=== PATIENT | male | born 2000 | race Caucasian/White ===

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

== ENCOUNTER 2023-03-31 22:34 | Emergency (ER) | payer OTHER ==
[2023-03-31 22:46] VITALS: BP 120/72; PULSE 59; RESP 16; TEMP 98.7
[2023-04-01] MEDS ORDERED: FLUORESCEIN STRIPS 1 MG STRIP RIGHT EYE ONE (00:21)
[2023-04-01] MEDS ORDERED: PROPARACAINE 0.5% OPHTH DROPS 15 ML BTL LEFT EYE STA (00:25)
[2023-04-01] MEDS ORDERED: TOBRAMYCIN 0.3% OPHTH DROPS 5 ML BTL LEFT EYE STA (00:47)
[2023-04-01] MEDS ORDERED: DIPH,PERTUS(ACELL)TETVAC-LF 0.5 ML VIAL IM ONE (00:48)
--- NOTE | 2023-04-01 00:55 | ED ---
Eye Problem HPI - General Chief complaint: Eye Problems Stated complaint: Object in left eye Time Seen by Provider: 04/01/23 00:11 Source: patient Mode of arrival: ambulatory Limitations: no limitations - History of Present Illness Initial comments: 22-year-old male presenting to the ED with a chief complaint of foreign body in left eye. She states he was cutting an exhaust earlier and got a foreign object in his left eye. Now notes pain of the left eye. Denies any changes in vision. Tetanus not up-to-date. No other complaints. - Related Data Home Medications Medication Instructions Recorded Confirmed No Known Home Medications 12/05/18 12/05/18 Allergies Allergy/AdvReac Type Severity Reaction Status Date / Time No Known Allergies Allergy Verified 03/31/23 22:41 Review of Systems ROS Statement: Those systems with pertinent positive or pertinent negative responses have been documented in the HPI. ROS Other: All systems not noted in ROS Statement are negative. Past Medical History Past Medical History: No Reported History History of Any Multi-Drug Resistant Organisms: None Reported Past Surgical History: No Surgical Hx Reported Past Psychological History: No Psychological Hx Reported Smoking Status: Vaper Past Alcohol Use History: None Reported Past Drug Use History: None Reported General Exam Limitations: no limitations General appearance: alert, in no apparent distress Head exam: Present: atraumatic Eye exam: Present: PERRL, EOMI, other (White/yellow foreign object in left eye. Moves easily. Displaced with proparacaine eyedrops.) Respiratory exam: Present: normal lung sounds bilaterally Cardiovascular Exam: Present: regular rate, normal rhythm Neurological exam: Present: alert, oriented X3 Psychiatric exam: Present: normal affect, normal mood Skin exam: Present: warm, dry Course Vital Signs 03/31/23 22:41 Temperature 98.7 F Pulse Rate 59 L Respiratory 16 Rate Blood Pressure 120/72 O2 Sat by Pulse 99 Oximetry Procedures - Forgein Body Removal Eye Site: Left Anesthetic Used: Proparacaine Eye Exam Technique: Fluorescein Foreign Body Suspected: Other Forgein Body Removal Technique: Cotton Swab Remaining Debris: No (No rust ring. Fluorescein exam unremarkable. ) Patient Tolerated: other (Intraocular pressures good bilaterally. Visual acuity 20/20 kenna) Medical Decision Making - Medical Decision Making Was pt. sent in by a medical professional or institution (, PA, CASTING AND LOCKER ROOM SERVICER, urgent care, hospital, or halfway...) When possible be specific @ -No Did you speak to anyone other than the patient for history (EMS, parent, family, police, friend...)? What history was obtained from this source @ -No Did you review nursing and triage notes (agree or disagree)? Why? @ -I reviewed and agree with nursing and triage notes Were old charts reviewed (outside hosp., previous admission, EMS record, old EKG, old radiological studies, urgent care reports/EKG's, halfway records)? Report findings @ -No old charts were reviewed Differential Diagnosis (chest pain, altered mental status, abdominal pain women, abdominal pain men, vaginal bleeding, weakness, fever, dyspnea, syncope, headache, dizziness, GI bleed, back pain, seizure, CVA, palpatations, mental health, musculoskeletal)? @ -Tetanus, acute vision loss. This is not meant to be an all-inclusive list. EKG interpreted by me (3pts min.). @ -None X-rays interpreted by me (1pt min.). @ -None done CT interpreted by me (1pt min.). @ -None done U/S interpreted by me (1pt. min.). @ -None done What testing was considered but not performed or refused? (CT, X-rays, U/S, labs)? Why? @ -None What meds were considered but not given or refused? Why? @ -None Did you discuss the management of the patient with other professionals (professionals i.e. , PA, CASTING AND LOCKER ROOM SERVICER, lab, RT, psych nurse, director social service, university relations recruiter, teacher, neighborhood conservation officer, case reviewer)? Give summary @ -No Was smoking cessation discussed for >3mins.? @ -No Was critical care preformed (if so, how long)? @ -No Were there social determinants of health that impacted care today? How? (Homelessness, low income, unemployed, alcoholism, drug addiction, tra nsportation, low edu. Level, literacy, decrease access to med. care, intermediate, rehab)? @ -No Was there de-escalation of care discussed even if they declined (Discuss DNR or withdrawal of care, Hospice)? DNR status @ -No What co-morbidities impacted this encounter? (DM, HTN, Smoking, COPD, CAD, Cancer, CVA, ARF, Chemo, Hep., AIDS, mental health diagnosis, sleep apnea, morbid obesity)? @ -None Was patient admitted / discharged? Hospital course, mention meds given and route, prescriptions, significant lab abnormalities, going to OR and other pertinent info. @ -Discharge. Foreign body removed without complications. Please see procedure note for further details. Tetanus updated Provided tobramycin eyedrops here. Provided follow up with ophthalmology. Discussed return precautions with patient who verbalizes agreement. Undiagnosed new problem with uncertain prognosis? @ -No Drug Therapy requiring intensive monitoring for toxicity (Heparin, Nitro, Insulin, Cardizem)? @ -No Were any procedures done? @ -Yes, foreign body removal. Diagnosis/symptom? @ -Foreign, left eye Acute, or Chronic, or Acute on Chronic? @ -Acute Uncomplicated (without systemic symptoms) or Complicated (systemic symptoms)? @ -Uncomplicated Side effects of treatment? @ -No Exacerbation, Progression, or Severe Exacerbation? @ -No Poses a threat to life or bodily function? How? (Chest pain, [place], [place], pneumonia, PE, COPD, DKA, ARF, appy, cholecystitis, CVA, Diverticulitis, Homicidal, Suicidal, threat to staff... and all critical care pts) @ -No Disposition Clinical Impression: Foreign body, eye Disposition: HOME SELF-CARE Condition: Good Instructions (If sedation given, give patient instructions): Eye Foreign Body (ED) Additional Instructions: Please return to the Emergency Department if symptoms worsen or any other concerns. 2 Eye drops in left eye every 6 hours for the next 5 days. Please follow up with ophthalmology. Is patient prescribed a controlled substance at d/c from ED?: No Referrals: Alondra Uribe MD [Primary Care Provider] - 1-2 days Anant Roberts MD [STAFF PHYSICIAN] - 1-2 days Time of Disposition: 00:55
== END 2023-04-01 01:10 | disposition home or self-care (01) ==
LOC: EC 22:34
DX: T15.90XA Foreign body on external eye, part unspecified, unspecified eye, initial encounter (principal); F17.290 Nicotine dependence, other tobacco product, uncomplicated; Z23 Encounter for immunization
CPT/HCPCS: 65220; 90471; 90715; 99283

== ENCOUNTER 2024-03-30 17:40 | Emergency (ER) | payer OTHER ==
--- NOTE | 2024-03-30 17:57 | ED ---
ENT HPI - General Chief complaint: Dental/Oral Stated complaint: Oral Pain Time Seen by Provider: 03/30/24 17:53 Source: patient, RN notes reviewed Mode of arrival: ambulatory Limitations: no limitations - History of Present Illness Initial comments: 23-year-old male presenting with dental pain. States he had all his teeth pulled this morning and has been having increased dental pain. He was prescribed ibuprofen, amoxicillin, and Tylenol threes however has not been able to take them. He states he is having difficulty swallowing due to pain and is drooling his secretions that are mixed with blood. He was given dentures and was instructed to wear them at all times. Denies difficulty breathing - Related Data Home Medications Medication Instructions Recorded Confirmed No Known Home Medications 12/05/18 12/05/18 Allergies Allergy/AdvReac Type Severity Reaction Status Date / Time No Known Allergies Allergy Verified 03/30/24 17:44 Review of Systems ROS Statement: Those systems with pertinent positive or pertinent negative responses have been documented in the HPI. ROS Other: All systems not noted in ROS Statement are negative. Past Medical History Past Medical History: No Reported History History of Any Multi-Drug Resistant Organisms: None Reported Past Surgical History: No Surgical Hx Reported Past Psychological History: No Psychological Hx Reported Smoking Status: Vaper Past Alcohol Use History: None Reported Past Drug Use History: None Reported General Exam Limitations: no limitations General appearance: alert, other (Patient is drooling secretions mixed with blood into a plastic container upon examination. He is having difficulty speaking with dentures.) Head exam: Present: atraumatic, normocephalic, normal inspection Eye exam: Present: normal appearance, PERRL, EOMI. Absent: scleral icterus, conjunctival injection, periorbital swelling ENT exam: Present: mucous membranes moist. Absent: normal oropharynx (Dentures present. There is active bleeding from upper and lower gingiva) Neck exam: Present: normal inspection. Absent: tenderness, meningismus, lymphadenopathy Respiratory exam: Present: normal lung sounds bilaterally. Absent: respiratory distress, wheezes, rales, rhonchi, stridor Cardiovascular Exam: Present: regular rate, normal rhythm, normal heart sounds. Absent: systolic murmur, diastolic murmur, rubs, gallop, clicks Course Vital Signs 03/30/24 03/30/24 17:42 19:28 Temperature 97.2 F L 98.5 F Pulse Rate 68 59 L Respiratory 18 20 Rate Blood Pressure 143/84 112/58 O2 Sat by Pulse 99 99 Oximetry Medical Decision Making - Medical Decision Making Was pt. sent in by a medical professional or institution (ROSE Bean, MACHINIST/MACHINE BUILDER, urgent care, hospital, or senior care...) When possible be specific @ -No Did you speak to anyone other than the patient for history (EMS, parent, family, police, friend...)? What history was obtained from this source @ -Patient's grandfather supplemented history Did you review nursing and triage notes (agree or disagree)? Why? @ -I reviewed and agree with nursing and triage notes Were old charts reviewed (outside hosp., previous admission, EMS record, old EKG, old radiological studies, urgent care reports/EKG's, senior care records)? Report findings @ -No old charts were reviewed Differential Diagnosis (chest pain, altered mental status, abdominal pain women, abdominal pain men, vaginal bleeding, weakness, fever, dyspnea, syncope, headache, dizziness, GI bleed, back pain, seizure, CVA, palpatations, mental health, musculoskeletal)? @ -Dental pain from procedure, dental abscess, dental infection, retropharyngeal abscess, strep pharyngitis EKG interpreted by me (3pts min.). @ -None X-rays interpreted by me (1pt min.). @ -None done CT interpreted by me (1pt min.). @ -None done U/S interpreted by me (1pt. min.). @ -None done What testing was considered but not performed or refused? (CT, X-rays, U/S, labs)? Why? @ -None What meds were considered but not given or refused? Why? @ -None Did you discuss the management of the patient with other professionals (professionals i.e. ROSE Bean, MACHINIST/MACHINE BUILDER, lab, RT, psych nurse, social services designee, quality improvement analyst, teacher, chemical instrumentation officer, bottle caser)? Give summary @ -No Was smoking cessation discussed for >3mins.? @ -No Was critical care preformed (if so, how long)? @ -No Were there social determinants of health that impacted care today? How? (Homelessness, low income, unemployed, alcoholism, drug addiction, transportation, low edu. Level, literacy, decrease access to med. care, penitentiary, rehab)? @ -No Was there de-escalation of care discussed even if they declined (Discuss DNR or withdrawal of care, Hospice)? DNR status @ -No What co-morbidities impacted this encounter? (DM, HTN, Smoking, COPD, CAD, Cancer, CVA, ARF, Chemo, Hep., AIDS, mental health diagnosis, sleep apnea, morbid obesity)? @ -None Was patient admitted / discharged? Hospital course, mention meds given and route, prescriptions, significant lab abnormalities, going to OR and other pertinent info. @ -Patient was discharged. Patient was seen and evaluated for dental pain status post tooth extraction earlier today. Patient states he had all his teeth pulled earlier today. Patient is having increased pain with swallowing and swelling. Patient is unable to take oral medications. Patient is not having difficulty breathing and is able to swallow. No red flag symptoms. No sign of bacterial infection upon examination. He was given IM Toradol and morphine for pain. Upon reevaluation, patient states symptoms are much improved. Advised to follow-up with dentist in the morning. Instructed to continuously sip ice water to aid in bleeding and swelling. Strict return parameters discussed with patient and he shows understanding and agrees with plan. Case was discussed with my attending Dr. Garcia. Patient discharged in stable condition. Undiagnosed new problem with uncertain prognosis? @ -No Drug Therapy requiring intensive monitoring for toxicity (Heparin, Nitro, Insulin, Cardizem)? @ -No Were any procedures done? @ -No Diagnosis/symptom? @ -Dental pain s/p procedure Acute, or Chronic, or Acute on Chronic? @ -Acute Uncomplicated (without systemic symptoms) or Complicated (systemic symptoms)? @ -Uncomplicated Side effects of treatment? @ -No Exacerbation, Progression, or Severe Exacerbation? @ -No Poses a threat to life or bodily function? How? (Chest pain, [place], [place], pneumonia, PE, COPD, DKA, ARF, appy, cholecystitis, CVA, Diverticulitis, Homicidal, Suicidal, threat to staff... and all critical care pts) @ -Unlikely Disposition Clinical Impression: Pain, dental Disposition: HOME SELF-CARE Condition: Stable Additional Instructions: Please follow-up with dentist tomorrow morning. Please return to the Emergency Department if symptoms worsen or any other concerns. Is patient prescribed a controlled substance at d/c from ED?: No Referrals: None,Stated [Primary Care Provider] - 1-2 days Time of Disposition: 19:20
[2024-03-30] MEDS: MORPHINE SULFATE 4 MG/ML SYRINGE IM STA (18:02)
[2024-03-30] MEDS: KETOROLAC 15 MG/ML 1 ML VIAL IM STA ×2 (18:03→19:26)
[2024-03-30 19:35] VITALS: BP 112/58; PULSE 59; RESP 20; TEMP 98.5
== END 2024-03-30 19:28 | disposition home or self-care (01) ==
LOC: EC 17:40
DX: K08.89 Other specified disorders of teeth and supporting structures (principal); F17.290 Nicotine dependence, other tobacco product, uncomplicated
CPT/HCPCS: 99283; 96372 ×3; J2270; J1885

== ENCOUNTER 2024-09-29 20:18 | Emergency (ER) | payer OTHER ==
[2024-09-29 20:22] VITALS: BP 117/60; PULSE 74; RESP 18; TEMP 98.2
[2024-09-29] MEDS: CIPROFLOXACIN 0.3% OPHTH SOLN 5 ML BTL RIGHT EYE STA (20:42)
[2024-09-29] MEDS: PROPARACAINE 0.5% OPHTH DROPS 15 ML BTL RIGHT EYE STA (20:42)
[2024-09-29] MEDS: KETOROLAC 0.5% OPHTH DROPS 5 ML BTL RIGHT EYE STA (20:42)
[2024-09-29] MEDS: FLUORESCEIN STRIPS 1 MG STRIP RIGHT EYE ONE (20:42)
--- NOTE | 2024-09-29 20:51 | ED ---
Eye Problem HPI - General Chief complaint: Eye Problems Stated complaint: foreign object R eye Time Seen by Provider: 09/29/24 20:23 Source: patient Mode of arrival: ambulatory - History of Present Illness Initial comments: 24-year-old male presenting with chief complaint of foreign body in the right eye. Patient was working on a car when he believes a piece of metal got into h is right eye. He was not wearing safety glasses. He went to 2 different urgent cares and they were not able to completely remove the metal piece. He has a follow-up appointment with an oven tender bagels tomorrow. Admits to foreign body sensation. No vision changes or loss. Does not wear contact lenses. - Related Data Home Medications Medication Instructions Recorded Confirmed No Known Home Medications 12/05/18 12/05/18 Allergies Allergy/AdvReac Type Severity Reaction Status Date / Time No Known Allergies Allergy Verified 09/29/24 20:21 Review of Systems ROS Statement: Those systems with pertinent positive or pertinent negative responses have been documented in the HPI. ROS Other: All systems not noted in ROS Statement are negative. Past Medical History Past Medical History: No Reported History History of Any Multi-Drug Resistant Organisms: None Reported Past Surgical History: No Surgical Hx Reported Past Psychological History: No Psychological Hx Reported Smoking Status: Vaper Past Alcohol Use History: None Reported Past Drug Use History: None Reported General Exam Limitations: no limitations General appearance: alert, in no apparent distress Head exam: Present: atraumatic, normocephalic Eye exam: Present: other (Uptake on fluorescein examination, small rust ring right eye) Neck exam: Present: normal inspection. Absent: meningismus Respiratory exam: Absent: respiratory distress Cardiovascular Exam: Present: regular rate Neurological exam: Present: alert, oriented X3 Psychiatric exam: Present: normal affect, normal mood Skin exam: Present: warm, dry Course Vital Signs 09/29/24 20:19 Temperature 98.2 F Pulse Rate 74 Respiratory 18 Rate Blood Pressure 117/60 O2 Sat by Pulse 98 Oximetry Medical Decision Making - Medical Decision Making Was pt. sent in by a medical professional or institution (, PA, NEW ACCOUNTS BANKING REPRESENTATIVE, urgent care, hospital, or penitentiary...) When possible be specific @ -No Did you speak to anyone other than the patient for history (EMS, parent, family, police, friend...)? What history was obtained from this source @ -No Did you review nursing and triage notes (agree or disagree)? Why? @ -I reviewed and agree with nursing and triage notes Were old charts reviewed (outside hosp., previous admission, EMS record, old EKG, old radiological studies, urgent care reports/EKG's, penitentiary records)? Report findings @ -No old charts were reviewed Differential Diagnosis (chest pain, altered mental status, abdominal pain women, abdominal pain men, vaginal bleeding, weakness, fever, dyspnea, syncope, headache, dizziness, GI bleed, back pain, seizure, CVA, palpatations, mental health, musculoskeletal)? @ -Differential includes foreign body, corneal abrasion, corneal ulcer, this is not an all-inclusive list EKG interpreted by me (3pts min.). @ -As above X-rays interpreted by me (1pt min.). @ -None done CT interpreted by me (1pt min.). @ -None done U/S interpreted by me (1pt. min.). @ -None done What testing was considered but not performed or refused? (CT, X-rays, U/S, labs)? Why? @ -None What meds were considered but not given or refused? Why? @ -None Did you discuss the management of the patient with other professionals (professionals i.e. , PA, NEW ACCOUNTS BANKING REPRESENTATIVE, lab, RT, psych nurse, health and social care teacher, seed packer, teacher, corporate ethics officer, pillowcase maker)? Give summary @ -No Was smoking cessation discussed for >3mins.? @ -No Was critical care preformed (if so, how long)? @ -No Were there social determinants of health that impacted care today? How? (Homelessness, low income, unemployed, alcoholism, drug addiction, transportation, low edu. Level, literacy, decrease access to med. care, prison, rehab)? @ -No Was there de-escalation of care discussed even if they declined (Discuss DNR or withdrawal of care, Hospice)? DNR status @ -No What co-morbidities impacted this encounter? (DM, HTN, Smoking, COPD, CAD, Cancer, CVA, ARF, Chemo, Hep., AIDS, mental health diagnosis, sleep apnea, morbid obesity)? @ -None Was patient admitted / discharged? Hospital course, mention meds given and route, prescriptions, significant lab abnormalities, going to OR and other pertinent info. @ -24-year-old male with a piece of metal in his right eye. There is a very small rust ring. There is uptake seen on fluorescein staining. 18-gauge needle is used to attempt to remove the rust ring. Majority appears removed, there may be some small remnants. Patient has a follow-up appointment with oven tender bagels tomorrow. He is started on Cipro eyedrops and provided with ketorolac eyedrops for discomfort. He is educated on today's findings and treatment plan. Follow- up with PCP. Report back to ER with any new or worsening symptoms. Discussed return parameters and answered all questions. Patient conveyed verbal understanding and agreed to the plan. I discussed this case in detail with my attending Dr. Cuellar Undiagnosed new problem with uncertain prognosis? @ -No Drug Therapy requiring intensive monitoring for toxicity (Heparin, Nitro, Insulin, Cardizem)? @ -No Were any procedures done? @ -No Diagnosis/symptom? @ -Corneal abrasion, corneal foreign body Acute, or Chronic, or Acute on Chronic? @ -Acute Uncomplicated (without systemic symptoms) or Complicated (systemic symptoms)? @ -Uncomplicated Side effects of treatment? @ -No Exacerbation, Progression, or Severe Exacerbation? @ -No Poses a threat to life or bodily function? How? (Chest pain, [place], [place], pneumonia, PE, COPD, DKA, ARF, appy, cholecystitis, CVA, Diverticulitis, Homicidal, Suicidal, threat to staff... and all critical care pts) @ -Low likelihood Disposition Clinical Impression: Corneal rust ring, Corneal abrasion Disposition: HOME SELF-CARE Condition: Good Instructions (If sedation given, give patient instructions): Corneal Abrasion (ED), Eye Foreign Body (ED) Additional Instructions: Follow-up with your eye doctor appointment tomorrow. Report back to ER with any new or worsening symptoms. Apply 2 Cipro eyedrops to the affected eye 4 times a day for 5 days to prevent infection. Apply 1 ketorolac eyedrop to the affected eye up to 3 times a day as needed for pain Is patient prescribed a controlled substance at d/c from ED?: No Referrals: Alondra Uribe MD [Primary Care Provider] - 1-2 days Time of Disposition: 20:51
== END 2024-09-29 20:55 | disposition home or self-care (01) ==
LOC: EC 20:18
DX: S05.01XA Injury of conjunctiva and corneal abrasion without foreign body, right eye, initial encounter (principal); F17.290 Nicotine dependence, other tobacco product, uncomplicated; W22.8XXA Striking against or struck by other objects, initial encounter; Y93.01 Activity, walking, marching and hiking
CPT/HCPCS: 99282